=== PATIENT | male | born 1960 | race Caucasian/White ===

== ENCOUNTER 2018-10-27 14:38 | Inpatient (IN) | payer OTHER, MEDICARE ==
[~2018-10-27] VITALS: Ht 175.3 cm; Wt 62.7 kg
[2018-10-27] MEDS ORDERED: SODIUM CHLORIDE 0.9% 1000ML 1,000 ML IV STA (14:55)
[2018-10-27] MEDS ORDERED: SUCCINYLCHOLINE CHLORIDE 20 MG/ML 10ML VIAL ONE (15:14)
[2018-10-27] MEDS ORDERED: ETOMIDATE 2 MG/ML 10 ML INJ IV ONE (15:14)
[2018-10-27 15:30] LABS: BASOPHILS # (AUTO) 0.1 (0.0-0.1); BASOPHILS % 0.2 % (0.0-1.0); EOSINOPHILS % 0.1 % (0.0-6.0); HEMATOCRIT 24.5 % (38.2-49.6); HEMOGLOBIN 7.3 g/dL (14.0-18.0); INR 1.16; LYMPHOCYTES # (AUTO) 0.3 (1.0-3.2); LYMPHOCYTES % 0.8 % (18.0-39.1); MEAN CORPUSCULAR HEMOGLOBIN 27.4 pg (28-32); MEAN CORPUSCULAR HGB CONC 29.8 g/dL (31-35); MEAN CORPUSCULAR VOLUME 92.1 fL (81-99); MONOCYTES # (AUTO) 1.5 (0.2-0.8); MONOCYTES % 4.5 % (4.4-11.3); NEUTROPHILS # (AUTO) 31.6 (2.1-6.9); PROTHROMBIN TIME 15.4 seconds (11.9-14.5); RED BLOOD COUNT 2.66 x10e6/uL (4.3-5.7); RED CELL DISTRIBUTION WIDTH 15.1 % (11.7-14.4)
[2018-10-27 15:31] LABS: PARTIAL THROMBOPLASTIN TIME 41.9 seconds (23.8-35.5)
[2018-10-27 15:38] LABS: ALANINE AMINOTRANSFERASE 11 IU/L (0-55); ALBUMIN 1.8 g/dL (3.5-5.0); ALBUMIN/GLOBULIN RATIO 0.4 (0.8-2.0); ALKALINE PHOSPHATASE 153 IU/L (40-150); ANION GAP 14.2 mmol/L (8-16); BLOOD UREA NITROGEN 13 mg/dL (7-26); BUN/CREATININE RATIO 16 (6-25); CALCIUM 8.9 mg/dL (8.4-10.2); CARBON DIOXIDE 31 mmol/L (22-29); CHLORIDE 96 mmol/L (98-107); CREATINE KINASE 539 IU/L (30-200); CREATININE, SERUM 0.83 mg/dL (0.72-1.25); EST GLOMERULAR FILTRATION RATE > 60 ML/MIN (60-); GLUCOSE 171 mg/dL (74-118); MAGNESIUM 1.7 MG/DL (1.3-2.1); POTASSIUM 4.2 mmol/L (3.5-5.1); SODIUM 137 mmol/L (136-145)
[2018-10-27 15:40] LABS: PLATELET COUNT 500 x10e3/uL (140-360)
[2018-10-27] MEDS ORDERED: VANCOMYCIN 1GM/NS 250 ML 250 ML IV ONE (15:45)
--- NOTE | 2018-10-27 15:46 | Diagnostic Imaging Report ---
History: Altered mental status Comparison studies: None Technique: Axial images were obtained from the skull base to the vertex. Coronal and sagittal images reconstructed from the axial data. Dose modulation, iterative reconstruction, and/or weight based adjustment of the mA/kV was utilized to reduce the radiation dose to as low as reasonably achievable. Intravenous contrast: None Findings: Scalp/skull: No abnormalities. Extra-axial spaces: No masses. No fluid collections. Brain sulci: Mildly prominent. Ventricles: Mild compensatory dilatation. No hydrocephalus. Parenchyma: Describe hypodensities in the supratentorial white matter are small vessel ischemic changes. No masses, hemorrhage, acute or chronic cortical vascular insults. Sellar/suprasellar region: No abnormalities. Craniocervical junction: Patent foramen magnum. No Chiari one malformation. Incidental findings: Subtle atherosclerotic calcifications in the carotid siphons . Impression: No intracranial abnormalities. Signed by: Dr. Jorge Evans M.D. on 10/27/2018 3:43 PM
--- NOTE | 2018-10-27 16:00 | Diagnostic Imaging Report ---
EXAMINATION: CHEST SINGLE (PORTABLE) INDICATION: Lung cancer, shortness of breath, altered mental status. COMPARISON: None FINDINGS: TUBES and LINES: Left-sided pacemaker with leads overlying the right atrium and right ventricle. LUNGS: Decreased left lung volume. There is a left perihilar opacity. There are multifocal patchy opacities involving the bilateral upper and left lower lungs. Mild patchy right basilar opacity. PLEURA: There is a moderate left pleural effusion. No evidence of pneumothorax. HEART AND MEDIASTINUM: The left cardiac silhouette is obscured by the hilar opacity. There is thickening of the left paratracheal stripe. BONES AND SOFT TISSUES: No acute osseous abnormality. UPPER ABDOMEN: No free air under the diaphragm. IMPRESSION: Left perihilar opacity, which may represent known malignancy. Multifocal patchy opacities, which may reflect superimposed pneumonia. If no prior comparison studies are available, CT is suggested for further evaluation. Moderate left pleural effusion. Signed by: Dr. Trupti Maldonado MD on 10/27/2018 3:57 PM
[2018-10-27 16:12] LABS: ACETAMINOPHEN 4 ug/mL (10-30)
[2018-10-27 16:20] LABS: SALICYLATE < 5.0 mg/dL (0-30)
[2018-10-27] MEDS: CEFEPIME 2 GM/NS 0.9% 100 ML 100 ML IV SCH (16:24)
[2018-10-27] MEDS ORDERED: SODIUM CHLORIDE 0.9% 250ML 250 ML IV ONE (16:45)
[2018-10-27] MEDS ORDERED: SODIUM CHLORIDE 0.9% 1000ML 1,000 ML IV ONE (17:15)
[2018-10-27 17:16] LABS: BILIRUBIN,URINE NEGATIVE (NEGATIVE); COLOR,URINE YELLOW (YELLOW); KETONES,URINE NEGATIVE (NEGATIVE); LEUKOCYTE ESTERASE ,URINE NEGATIVE (NEGATIVE); NITRITE,URINE NEGATIVE (NEGATIVE); PROTEIN,URINE DIPSTICK 1+ (NEGATIVE); URINE UROBILINOGEN 0.2 mg/dL (0.2 - 1)
[2018-10-27 17:18] LABS: CLARITY,URINE HAZY (CLEAR)
[2018-10-27 17:23] LABS: AMPHETAMINES SCREEN,URINE NEGATIVE (NEGATIVE); BENZODIAZEPINES SCREEN,URINE POSITIVE (NEGATIVE); PHENCYCLIDINE SCREEN,URINE NEGATIVE (NEGATIVE)
[2018-10-27 17:31] LABS: AMORPHOUS SEDIMENT,URINE MODERATE (FEW); BACTERIA,URINE FEW /HPF; EPITHELIAL CELLS,URINE RARE /LPF
--- OUTSIDE RECORDS SUMMARY | 2018-10-27 17:31 | XMS REPORT ---
Author Author [facility] Address Unknown Phone Unavailable Care Team Providers Care Field Sales Specialist Name Role Phone Aubree BRYAN Unavailable Unavailable Problems This patient has no known problems. Allergies, Adverse Reactions, Alerts This patient has no known allergies or adverse reactions. Medications This patient has no known medications. Results Test Description Test Time Test Comments Text Results Atomic Results Result Comments CHEST SINGLE (PORTABLE) 2018-10-27 15:47:00 [facility] [address] [place] [address] Patient Name: CATALINA BERGMAN MR #: [id number] : 1960 Age/Sex: 58/M Req #: [id number] Adm Physician: Ordered by: ENRIKE BRYAN MD Report #: [id number] Location: ER Room/Bed: Procedure: [id number] DX/CHEST SINGLE (PORTABLE) Exam Date: 10/27/18 Exam Time: 1510 REPORT STATUS: Signed EXAMINATION: CHEST SINGLE (PORTABLE) I NDICATION: Lung cancer, shortness of breath, altered mental status. COMPARISON: None FINDINGS: TUBES and LINES: Left-sided pacemaker with leads overlying the right atrium and right ventricle. LUNGS: Decreased left lung volume. There is a left perihilar opacity. There are multifocal patchy opacities involving the bilateral upper and left lower lungs. Mild patchy right basilar opacity. PLEURA: There is a moderate left pleural effusion. No evidence of pneumothorax. HEART AND MEDIASTINUM: The left cardiac silhouette is obscured by the hilar opacity. There is thickening of the left paratracheal stripe. BONES AND SOFT TISSUES: No acute osseous abnormality. UPPER ABDOMEN: No free air under the diaphragm. IMPRESSION: Left perihilar opacity, which may represent known malignancy. Multifocal patchy opacities, which may reflect superimposed pneumonia. If no prior comparison studies are available, CT is suggested for further evaluation. Moderate left pleural effusion. Signed by: Dr. Uriel Duffy MD on 10/27/2018 3:57 PM Dictated By: URIEL DUFFY MD 364 Transcribed By: KENDRICK on 10/27/181556 COPY TO: ENRIKE BRYAN MD CT BRAIN WO 2018-10-27 15:41:00 [place] [address] Patient Name: CATALINA BERGMAN MR #: [id number] : 1960 Age/Sex: 58/M Req #: [id number] Adm Physician: Ordered by: ENRIKE BRYAN MD Report #: [id number] Location: ER Room/Bed: Procedure: [id number] CT/CT BRAIN WO Exam Date: Exam Time: REPORT STATUS: Signed History: Altered mental status Comparison studies: None Technique: Axial images were obtained from the skull base to the vertex. Coronal and sagittal images reconstructed from the axial data. Dose modulation, iterative reconstruction, and/or weight based adjustment of the mA/kV was utilized to reduce the radiation dose to as low as reasonably achievable. Intravenous contrast: None Findings: Scalp/skull: No abnormalities. Extra-axial spaces: No masses. No fluid collections. Brain sulci: Mildly prominent. Ventricles: Mild compensatory dilatation. No hydrocephalus. Parenchyma: Describe hypodensities in the supratentorial white matter are small vessel ischemic changes. No masses, hemorrhage, acute or chronic cortical vascular insults. Sellar/suprasellar region: No abnormalities. Craniocervical junction: Patent foramen magnum. No Chiari one malformation. Incidental findings: Subtle atherosclerotic calcifications in the carotid siphons . Impression: No intracranial abnormalities. Signed by: Dr. Jorge Evans M.D. on 10/27/2018 3:43 PM Dictated By: JORGE EVANS MD, MD 1543 Transcribed By: KENDRICK on 10/27/18 1543 COPY TO: ENRIKE BRYAN MD
[2018-10-27 17:35] LABS: WBC,URINE (MAN) 21-50 /HPF (0-5)
--- NOTE | 2018-10-27 17:50 | NUR ---
RECEIVED PT FROM ER. [id number]. PT RESTING ON BED WITH NO SIGNS OF DISTRESS. PT FAMILY AT BEDSIDE. BED IS AT THE LOWEST POSITION AND LOCKED. CALL LIGHT WITH IN EASY REACH. INSTRUCTED PT TO CALL FOR NEEDS. PT DENIES NEEDS AT THIS TIME.
[2018-10-27 18:17] VITALS: BP 118/81
[2018-10-27 18:19] VITALS: BP 118/81
[2018-10-27 18:31] LABS: BAND NEUTROPHILS % (MANUAL) 4 %; MONOCYTES % (MANUAL) 6 % (3.4-9.0); NEUTROPHILS % (MANUAL) 90 % (40-74)
[2018-10-27 18:32] LABS: PLATELET ESTIMATE MODERATELY INCREASED; PLATELET MORPHOLOGY COMMENT NORMAL
[2018-10-27 18:33] LABS: HYPOCHROMASIA SLIGHT; RBC MORPHOLOGY COMMENT NORMAL
[2018-10-27] MEDS: ALBUTEROL SULF 0.083% NEB SOLN 3 ML NEB NEB SCH ×2 (19:00→23:00)
[2018-10-27] MEDS: IPRATROPIUM BROMIDE 0.02% 2.5 ML NEB NEB SCH (19:00)
--- NOTE | 2018-10-27 19:00 | NUR ---
BEDSIDE SHIFT REPORT GIVEN TO THE BOOKSTORE CLERK RN. PT DENIED FURTHER NEEDS.
[2018-10-27] MEDS: AZITHROMYCIN 500MG/NS 250 ML 250 ML IV SCH (19:19)
--- NOTE | 2018-10-27 19:40 | NUR ---
Received patient in bed aaox3 with at bedside. No resp distress. Denies pain at this time. call light within reach and instructed to call for assistance.
[2018-10-27] MEDS ORDERED: ECONAZOLE NITRAT5 GM TOP (20:17)
[2018-10-27] MEDS ORDERED: GABAPENTIN100 MG PO (20:17)
[2018-10-27] MEDS ORDERED: MULTI-VITAMIN1 EACH PO (20:17)
[2018-10-27] MEDS ORDERED: BUPROPION XL150 MG (20:17)
[2018-10-27] MEDS ORDERED: IBUPROFEN400 MG PO (20:17)
[2018-10-27] MEDS ORDERED: VIBRAMYCIN100 MG PO (20:17)
[2018-10-27] MEDS ORDERED: LEVOTHYROXINE50 MCG PO (20:17)
[2018-10-27] MEDS ORDERED: QUETIAPINE FUM100 MG PO (20:17)
[2018-10-27] MEDS ORDERED: METHADONE HCL10 MG PO (20:17)
[2018-10-27] MEDS ORDERED: BISACODYL5 MG PO (20:17)
[2018-10-27] MEDS ORDERED: CHANTIX1 MG PO (20:17)
[2018-10-27] MEDS ORDERED: OLANZAPINE5 MG PO (20:17)
[2018-10-27 20:45] VITALS: BP 111/53
[2018-10-27] MEDS ORDERED: SODIUM CHLORIDE 0.9% 250ML 250 ML ONE (21:34)
--- NOTE | 2018-10-27 21:45 | NUR ---
Started blood transfusion. NEERAJ. Will continue to monitor.
[2018-10-27 21:56] LABS: CREATINE KINASE MB 8.7 ng/mL (0-5.0)
[2018-10-27 23:04] VITALS: BP 154/78
--- NOTE | 2018-10-27 23:30 | NUR ---
Tele monitor indicated patient in AFIB RVR. Patient became unresponsive, and pupil constricted. Called rapid response and team arrived.
--- NOTE | 2018-10-27 23:30 | NUR ---
Stopped blood transfusion
[2018-10-27] MEDS ORDERED: SODIUM CHLORIDE 0.9% 1000ML 2,000 ML ONE (23:56)
[2018-10-28] VITALS (23 sets, daily range): BP systolic 87–156; BP diastolic 45–88
[2018-10-28] MEDS ORDERED: NOREPINEPHRINE 8 MG/D5W 250 ML 250 ML ONE (00:08)
[2018-10-28] MEDS ORDERED: FENTANYL CITRATE/PF 100MCG/2 ML INJ ONE (00:16)
[2018-10-28] MEDS ORDERED: MIDAZOLAM HCL 2 MG/2 ML VIAL ONE ×3 (00:19→21:18)
[2018-10-28] MEDS ORDERED: SODIUM CHLORIDE 0.9% 1000ML 2,000 ML ONE (00:20)
[2018-10-28] MEDS ORDERED: CEFEPIME 1GM/NS 0.9% 50 ML 50 ML IV STA (00:24)
[2018-10-28] MEDS ORDERED: VANCOMYCIN 1GM/NS 250 ML 250 ML IV STA (00:24)
[2018-10-28 00:46] LABS: BASOPHILS % 0.1 % (0.0-1.0); EOSINOPHILS # (AUTO) 0.1 (0.0-0.4); EOSINOPHILS % 0.2 % (0.0-6.0); HEMATOCRIT 21.1 % (38.2-49.6); LYMPHOCYTES # (AUTO) 0.2 (1.0-3.2); LYMPHOCYTES % 0.9 % (18.0-39.1); MEAN CORPUSCULAR HEMOGLOBIN 27.5 pg (28-32); MEAN CORPUSCULAR HGB CONC 29.9 g/dL (31-35); MEAN CORPUSCULAR VOLUME 92.1 fL (81-99); MONOCYTES # (AUTO) 1.5 (0.2-0.8); MONOCYTES % 5.6 % (4.4-11.3); NEUTROPHILS # (AUTO) 24.1 (2.1-6.9); NEUTROPHILS % 92.2 % (38.7-80.0); PLATELET COUNT 285 x10e3/uL (140-360); RED BLOOD COUNT 2.29 x10e6/uL (4.3-5.7); RED CELL DISTRIBUTION WIDTH 15.9 % (11.7-14.4)
[2018-10-28 00:50] LABS: INR 1.32
[2018-10-28 00:55] LABS: HEMOGLOBIN 6.3 g/dL (14.0-18.0)
--- NOTE | 2018-10-28 01:20 | NUR ---
Spoke with Dr. Hwang and he is aware of patient transfer to ICU
[2018-10-28 01:33] LABS: ALANINE AMINOTRANSFERASE 13 IU/L (0-55); ALBUMIN 1.3 g/dL (3.5-5.0); ALBUMIN/GLOBULIN RATIO 0.3 (0.8-2.0); ALKALINE PHOSPHATASE 174 IU/L (40-150); ANION GAP 10.9 mmol/L (8-16); BLOOD UREA NITROGEN 11 mg/dL (7-26); BUN/CREATININE RATIO 17 (6-25); CARBON DIOXIDE 25 mmol/L (22-29); CHLORIDE 109 mmol/L (98-107); CREATINE KINASE 277 IU/L (30-200); CREATININE, SERUM 0.64 mg/dL (0.72-1.25); EST GLOMERULAR FILTRATION RATE > 60 ML/MIN (60-); GLUCOSE 98 mg/dL (74-118); POTASSIUM 3.9 mmol/L (3.5-5.1); SODIUM 141 mmol/L (136-145)
[2018-10-28 01:45] LABS: CALCIUM 7.3 mg/dL (8.4-10.2)
--- NOTE | 2018-10-28 01:45 | Diagnostic Imaging Report ---
Examination: Single AP view of the chest. COMPARISON: 10/27/2018 INDICATION: Anemia DISCUSSION: Lines/tubes: Endotracheal tube at the thoracic inlet.] Catheter with tip over the SVC. Lungs: Multifocal opacities within the right hemithorax. The left lung is collapsed effusion. Pleura: Left effusion. Heart and mediastinum: The heart is obscured. Bones and soft tissues: No acute bony abnormalities. Degenerative changes in the thoracic spine. IMPRESSION: Opacified left hemithorax compared to collapse and effusion from malignancy. Increased consolidation in the right chest. Signed by: Dr. Jaiden Renee M.D. on 10/28/2018 1:41 AM
[2018-10-28] MEDS ORDERED: SODIUM CHLORIDE 0.9% 50ML 50 ML ONE ×2 (01:46→06:22)
[2018-10-28] MEDS ORDERED: SODIUM CHLORIDE 0.9% 250ML 250 ML ONE ×2 (01:47→02:53)
--- NOTE | 2018-10-28 01:53 | Diagnostic Imaging Report ---
EXAMINATION: CT scan of the chest with contrast. TECHNIQUE: Helical CT images of the chest were performed from the lung apices to the level of the adrenal glands after the intravenous administration of 100 cc of Omnipaque 300. Coronal and sagittal reformatted images were obtained.Dose modulation, iterative reconstruction, and/or weight based adjustment of the mA/kV was utilized to reduce the radiation dose to as low as reasonably achievable. COMPARISON: None. CLINICAL HISTORY:Anemia, lung metastasis DISCUSSION: LINES/TUBES: Endotracheal tube at the thoracic inlet. Right IJ catheter in SVC. LUNGS AND AIRWAYS: Left hilar mass, ill-defined causing narrowing of the left mainstem bronchus and branches causing postobstructive left lung collapse. Additional narrowing of the left lung pulmonary vasculature. Groundglass and multifocal nodular consolidations within the right lung. Confluent consolidation middle lobe. No proximal airway obstruction. Underlying emphysematous change. No pulmonary embolism PLEURA: Moderate left and small right pleural effusion. HEART AND MEDIASTINUM: The thyroid gland is normal. The heart and pericardium are within normal limits. LYMPH NODES: There is no mediastinal, hilar or axillary lymphadenopathy. ABDOMEN: Limited contrast-enhanced views of the upper abdomen show no abnormality within the visualized liver, spleen, pancreas, or kidneys. The adrenal glands are normal. BONES AND SOFT TISSUES: No acute bony abnormalities. IMPRESSION: Ill-defined left hilar mass causing postobstructive left lung collapse. Left greater than right pleural effusion. Multifocal groundglass and nodular opacities in the right lung may reflect a combination of metastasis and treatment toxicity. Confluent consolidation in the right middle lobe may reflect pneumonia. Signed by: Dr. Jaiden Renee M.D. on 10/28/2018 1:50 AM
--- NOTE | 2018-10-28 02:04 | NUR ---
VERSED 25MG DISPENSED FROM [employer] AT THIS TIME AND GIVEN TO NIVIA ROGERS FOR VERSED DRIP PREPARATION.
[2018-10-28] MEDS ORDERED: MIDAZOLAM HCL 5 MG/ML VIAL ONE (02:06)
[2018-10-28 02:14] LABS: BILIRUBIN,URINE NEGATIVE (NEGATIVE); CLARITY,URINE SL CLOUDY (CLEAR); COLOR,URINE YELLOW (YELLOW); KETONES,URINE NEGATIVE (NEGATIVE); LEUKOCYTE ESTERASE ,URINE NEGATIVE (NEGATIVE); NITRITE,URINE NEGATIVE (NEGATIVE); PROTEIN,URINE DIPSTICK 1+ (NEGATIVE); URINE UROBILINOGEN 0.2 mg/dL (0.2 - 1)
[2018-10-28 02:24] LABS: ABG HCO3 29 mmol/L (23-28); ABG PCO2 58 mmHg (41-51); ABG PH 7.31 (7.31-7.41); ABG PO2 412 mmHg (80-105)
[2018-10-28 02:28] LABS: BACTERIA,URINE MODERATE /HPF; EPITHELIAL CELLS,URINE FEW /LPF; TRANSITIONAL EPI CELLS,URINE FEW
[2018-10-28 02:29] LABS: MUCUS,URINE FEW (RARE)
[2018-10-28] MEDS: ALBUTEROL SULF 0.083% NEB SOLN 3 ML NEB NEB SCH ×6 (02:30→23:02)
[2018-10-28] MEDS: MIDAZOLAM HCL 25 MG in SODIUM CHLORIDE 0.9% 50ML 45 ML IV PRN ×3 (02:30→21:24)
[2018-10-28] MEDS: IPRATROPIUM BROMIDE 0.02% 2.5 ML NEB NEB SCH ×7 (02:30→23:02)
[2018-10-28] MEDS: FENTANYL CITRATE INJ 2,000 MCG in SODIUM CHLORIDE 0.9% 250ML 210 ML IV PRN (03:00)
[2018-10-28] MEDS: NOREPINEPHRINE INJ 4MG/4ML 8 MG in DEXTROSE 5% 250ML 250 ML IV PRN ×3 (03:00→05:00)
--- NOTE | 2018-10-28 04:13 | NUR ---
Dr. Hwang updated on transfer to ICU and patient condition. Orders received. Paged again at [phone] to ana VALDEZ and read results of imaging and ABGs.
--- NOTE | 2018-10-28 04:15 | NUR ---
ER , Dr. Sanchez, aware of CXR results. Consent signed for thoracentesis per MD request. at bedside.
[2018-10-28] MEDS: CEFEPIME 2 GM/NS 0.9% 100 ML 100 ML IV SCH (05:00)
[2018-10-28 05:33] LABS: BASOPHILS % 0.1 % (0.0-1.0); EOSINOPHILS # (AUTO) 0.1 (0.0-0.4); EOSINOPHILS % 0.2 % (0.0-6.0); HEMATOCRIT 22.5 % (38.2-49.6); LYMPHOCYTES # (AUTO) 0.5 (1.0-3.2); LYMPHOCYTES % 1.7 % (18.0-39.1); MEAN CORPUSCULAR HEMOGLOBIN 27.1 pg (28-32); MEAN CORPUSCULAR HGB CONC 30.2 g/dL (31-35); MEAN CORPUSCULAR VOLUME 89.6 fL (81-99); MONOCYTES # (AUTO) 1.5 (0.2-0.8); MONOCYTES % 5.1 % (4.4-11.3); NEUTROPHILS % 91.6 % (38.7-80.0); RED BLOOD COUNT 2.51 x10e6/uL (4.3-5.7)
[2018-10-28 05:48] LABS: HEMOGLOBIN 6.8 g/dL (14.0-18.0)
[2018-10-28 05:49] LABS: PLATELET COUNT 322 x10e3/uL (140-360)
[2018-10-28 05:52] LABS: ALANINE AMINOTRANSFERASE 14 IU/L (0-55); ANION GAP 7.7 mmol/L (8-16); BLOOD UREA NITROGEN 10 mg/dL (7-26); BUN/CREATININE RATIO 17 (6-25); CALCIUM 7.9 mg/dL (8.4-10.2); CARBON DIOXIDE 28 mmol/L (22-29); CHLORIDE 108 mmol/L (98-107); CREATININE, SERUM 0.59 mg/dL (0.72-1.25); EST GLOMERULAR FILTRATION RATE > 60 ML/MIN (60-); GLUCOSE 76 mg/dL (74-118); POTASSIUM 3.7 mmol/L (3.5-5.1); SODIUM 140 mmol/L (136-145)
[2018-10-28 05:53] LABS: ALBUMIN 1.5 g/dL (3.5-5.0); ALBUMIN/GLOBULIN RATIO 0.3 (0.8-2.0); ALKALINE PHOSPHATASE 200 IU/L (40-150)
[2018-10-28] MEDS ORDERED: IOPAMIDOL 370 MG/ML 200 ML INFUS..BTL INJ ONE (06:22)
[2018-10-28 06:23] LABS: CREATINE KINASE MB 4.8 ng/mL (0-5.0)
--- NOTE | 2018-10-28 07:37 | NUR ---
0130- Dr. Hwang updated on available labs, some pending, and patient condition. MD notified of critical Hgb, no new orders received. 0600- Dr. Sanchez at bedside. MD discussed goals of POC and prognosis with , Ankita, at bedside. Patient's family changed code status to DNR, witnessed by DR. Sanchez and Nieves GONZÁLES. Thoracentesis done at bedside by Dr. Sanchez, -600 mL fluid removed. 614- Dr. wHang returned call. Updated MD on CXR/CT results, and new code status. Dr. Sanchez updated Dr. Hwang regarding patient, condition, diagnositics. Addendum: 10/28/18 at 0747 by Nieves Lang RN Dr. Sanchez discussed options including terminal extubation with family.
--- NOTE | 2018-10-28 07:42 | Diagnostic Imaging Report ---
Examination: Single AP view of the chest. COMPARISON: Chest radiograph 10/28/2018 at 12:24 AM, CT chest 10/28/2018. INDICATION: Status post thoracentesis. DISCUSSION: Lines/tubes: Endotracheal tube at the thoracic inlet.] Right IJ central venous catheter terminates near the brachiocephalic confluence. Left-sided pacemaker in unchanged position. Cardiac loop recorder. Lungs: Interval partial reaeration in the left upper lung. Persistent opacification within the left mid and lower lung zones. Persistent multifocal opacities in the right lung. Pleura: Interval decrease in size of a left-sided pleural effusion, now moderate. No evidence of pneumothorax. Heart and mediastinum: Left margin of the heart is obscured. Bones and soft tissues: No acute osseous abnormality. IMPRESSION: Interval decrease in size of moderate left pleural effusion with interval partial reaeration in the left upper lung. Left perihilar mass, better characterized on prior chest CT from 10/28/2018. Multifocal opacities, consistent with superimposed pneumonia. Signed by: Dr. Trupti Maldonado MD on 10/28/2018 7:39 AM
--- NOTE | 2018-10-28 08:01 | NUR ---
0000- Levophed gtt started during rapid response at 10 mcg/min. 0100- Bebeto [employer] adjusted levophed gtt to 9 mcg/min while in CT Scan.
[2018-10-28 08:09] LABS: LYMPHOCYTES % (MANUAL) 2 % (19-48); MONOCYTES % (MANUAL) 5 % (3.4-9.0); NEUTROPHILS % (MANUAL) 92 % (40-74); PLATELET MORPHOLOGY COMMENT NORMAL
[2018-10-28 08:10] LABS: PLATELET ESTIMATE ADEQUATE; RBC MORPHOLOGY COMMENT NORMAL
--- NOTE | 2018-10-28 08:16 | NUR ---
Levo gtt weaned off at 0500 BP 110/72 HR 68
[2018-10-28] MEDS ORDERED: VANCOMYCIN 1GM/NS 250 ML 250 ML IV SCH (09:00)
[2018-10-28 09:12] LABS: % IRON SATURATION 19 % (15-50); IRON 21 ug/dL (65-175); TOTAL IRON BINDING CAPACITY 111 ug/dL (261-478); TRANSFERRIN 79 mg/dL (174-364)
[2018-10-28] MEDS: LEVOTHYROXINE SODIUM 50 MCG TAB PO SCH (09:30)
[2018-10-28] MEDS: PANTOPRAZOLE 40 MG 10ML VIAL IV SCH (09:51)
[2018-10-28] MEDS: HEPARIN SOD (PORCINE) 5,000 UNIT/ML VIAL SC SCH ×2 (09:54→20:40)
[2018-10-28] MEDS: AZITHROMYCIN 500MG/NS 250 ML 250 ML IV SCH (10:34)
[2018-10-28 12:05] LABS: BODY FLUID APPEARANCE CLOUDY; BODY FLUID COLOR RED; BODY FLUID TYPE PLEURAL
[2018-10-28 12:08] LABS: RBC,BODY FLUID 11261 cells/uL; WBC,BODY FLUID 2475 cells/uL
[2018-10-28 12:17] LABS: LYMPHOCYTES,BODY FLUID 55 %; MONO/MACROPHG,BODY FLUID 4 %; NEUTROPHILS,BODY FLUID 41 %
--- NOTE | 2018-10-28 12:45 | NUR ---
ASSESSMENT: Spiritual distress Pt's accepting concerning pt's illness. Pt's states her has had cancer +4 years and has "suffered" from illness and treatment. Pt's , granddaughter and daughter at bedside. Pt's states she "isn't worried about his soul" after his . Pt's states when he dies she will miss him but "doesn't want him to suffer anymore." Pt's family expressed emotions thru words and tears. Intervention: Provided empathic listening. Facilitated conversation about pt's spirituality. Provided prayer. Provided information concerning availability of latin dance instructor. Outcome: Pt's family expressed appreciation for support. Will follow as able. BLADIMIR PIÑA [employer] Spiritual Care Department O: [phone] Pager: [phone] ([phone] number calling from)
[2018-10-28] MEDS: DEXTROSE 5%/0.9% SOD CHL 1,000 ML IV SCH (13:21)
[2018-10-28] MEDS: METHYLPREDNISOLONE SOD SUCC 40 MG/ML VIAL 1ML IV SCH ×2 (13:21→21:32)
--- NOTE | 2018-10-28 14:31 | Diagnostic Imaging Report ---
Exam: KUB - 2 views Clinical History: Nasogastric tube placement. Comparison: None. Findings: Nasogastric tube terminates in the expected location of the stomach, the side port is below the GE junction. Please refer to the chest radiograph from 10/28/2018 for details of intrathoracic findings including opacification of the left hemithorax. There is a cardiac loop recorder, partially seen. No significantly dilated bowel loops, although evaluation is limited secondary to soft tissue attenuation. Impression: Nasogastric tube terminates in the stomach. Signed by: Dr. Trupti Maldonado MD on 10/28/2018 2:27 PM
--- NOTE | 2018-10-28 15:13 | History and Physical ---
Patient of Dr. Hwang, __yamilka , Dr. Jeanna Blum. HISTORY OF PRESENT ILLNESS: Unfortunate 58-year-old gentleman diagnosed with carcinoma of the tongue approximately four years ago, treated with radiation, chemotherapy, and subsequently immunotherapies. He was initially followed by Dr. Blum and then subsequently Dr. Felipe . Apparently, he developed lung metastases.or a second primary tumor He has had a pacemaker in the past after an episode of syncope presumably for sick sinus syndrome. last night he became hypoxic during a transfusion. He was intubated and placed on ventilator support. FAMILY HISTORY: Positive for cancer. SOCIAL HISTORY: The patient does have a history of smoking. He worked until approximately two months ago. ALLERGIES: NO KNOWN ALLERGIES. Somewhat cachectic white male, intubated, apparently became short of breath after a transfusion last night. He is quite anemic with a leukemoid reaction. At admission felt to have pneumonia. He is surrounded by family. According to their report, he is short of breath. He has altered mental status. He had a fractured neck after a fall, which was related to sick sinus syndrome. MEDICATIONS: Include bupropion, doxycycline, Neurontin, Levoxyl, methadone, multivitamin, olanzapine, Seroquel, and Chantix . PLAN: Plan is to honor the patient's wishes. They may request withdrawal. At this point, continue empiric antibiotics, ventilator support. We will not escalate the care further . If not, we will request Hematology opinion before considering further transfusion. Hemoglobin is 7.3 on admission 6.8, white count 34,000. Serum albumin has also evidence of chronic CO2 retention. MD TALYA Victor/MODL /[id number] JONAS
[2018-10-28] MEDS ORDERED: ACETAMINOPHEN 1000 MG/100 ML IV PRN (15:15)
[2018-10-28] MEDS ORDERED: VANCOMYCIN 750MG/NS 150ML IVPB 150 ML IV SCH (15:30)
[2018-10-28] MEDS ORDERED: MEROPENEM 500MG 500 MG in SODIUM CHLORIDE 0.9% 50ML 50 ML IV SCH (18:00)
[2018-10-28] MEDS: MEROPENEM 500MG/ NS 50ML BAG IV SCH ×2 (18:03→23:45)
--- NOTE | 2018-10-28 18:49 | History and Physical ---
ADDENDUM: The patient did seem to have a transfusion reaction, shortness of breath, and hypoxia. The patient was discussed with his primary care oncologist, Dr. Angelique Felipe. She agreed that it would be appropriate to continue medical management and stabilize the patient and treat his pneumonia. MD TALYA Victor/MODL /[id number]
--- NOTE | 2018-10-28 18:55 | Consultation ---
DATE OF CONSULTATION: 10/28/2018 REASON FOR CONSULTATION: Sepsis and pneumonia. HISTORY OF PRESENT ILLNESS: This patient, who is a 58-year-old white male, who has history of cancer. He has been having problem with cancer for several years. 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 The patient comes in with altered mental status. Apparently, he has been sick for the last 3 days. He came to the emergency room. In the emergency room, it was noted that he have leukocytosis. He is currently intubated. The family at the bedside. The patient is sedated, does not really provide any meaningful information. Apparently, he has been battling cancer for several years on and off. He was on chemo, he was on radiation, and most recently he is on immunotherapy. The patient was admitted, started on antibiotic. His blood culture is still pending. His white count on came with 33.98, today 28.4. His hemoglobin 7.3, came down to 6.8. His platelets are 500. Sodium 140, potassium 3.7. His creatinine is 0.59. Liver enzymes, his alkaline phosphatase is 200. The patient is currently on Solu-Medrol, azithromycin, vancomycin daily, cefepime. He had a chest x-ray and chest CT. The chest x-ray showed left perihilar opacity which now represents malignancy, multifocal patchy opacities may reflect pneumonia. A CAT scan of the chest and brain was done, they were both reviewed. There was no intracranial abnormality. CAT scan of the chest showed left hilar mass causing postobstructive left lung collapse, left greater than right pleural effusion, multifocal ground-glass opacities. PAST MEDICAL HISTORY: Cancer on and off for several years. PAST SURGICAL HISTORY: IV access for getting his chemo. ALLERGIES: NKA. SOCIAL HISTORY: Currently, there is no smoking, drug abuse, or alcohol abuse. FAMILY HISTORY: Otherwise noncontributory. REVIEW OF SYSTEMS: The patient's family telling me that he was fine until about 4 to 5 days ago lethargic and sleepy and brought here, but now he is running fever. His review of systems could not be obtained. PHYSICAL EXAMINATION: GENERAL: He is currently confused. VITAL SIGNS: Stable. The patient is intubated, minimum sputum. HEENT: Normocephalic. NECK: Supple. CHEST: Few crackles. COR: S1, S2. No S3, S4. ABDOMEN: Soft. Bowel sounds present. No tenderness. EXTREMITIES: No edema. SKIN: There is no rash. JOINT: There is no erythema. The patient is very thin. IMPRESSION: Sepsis, present on admission, healthcare associated pneumonia in a patient with cancer, perhaps postobstructive malignancy also with . We will put him on meropenem 500 IV q.6 hours and we will put him on vancomycin 750 q.12 hours. I will recheck CBC, recheck Chem panel. Await cultures. MD TRAV Montanez/ELINA /[id number]
[2018-10-28] MEDS: VANCOMYCIN 750MG/NS 150ML IVPB 150 ML IV SCH (20:39)
[2018-10-29] VITALS (24 sets, daily range): BP systolic 102–149; BP diastolic 55–102
[2018-10-29] MEDS: FENTANYL CITRATE INJ 2,000 MCG in SODIUM CHLORIDE 0.9% 250ML 210 ML IV PRN (00:17)
[2018-10-29] MEDS: MIDAZOLAM HCL 25 MG in SODIUM CHLORIDE 0.9% 50ML 45 ML IV PRN ×3 (01:58→20:41)
[2018-10-29] MEDS: DEXTROSE 5%/0.9% SOD CHL 1,000 ML IV SCH ×2 (01:58→09:45)
[2018-10-29] MEDS: IPRATROPIUM BROMIDE 0.02% 2.5 ML NEB NEB SCH ×6 (02:55→23:07)
[2018-10-29] MEDS: ALBUTEROL SULF 0.083% NEB SOLN 3 ML NEB NEB SCH ×6 (02:55→23:07)
[2018-10-29 05:11] LABS: BASOPHILS % 0.1 % (0.0-1.0); HEMOGLOBIN 7.1 g/dL (14.0-18.0); LYMPHOCYTES # (AUTO) 0.3 (1.0-3.2); LYMPHOCYTES % 1.2 % (18.0-39.1); MEAN CORPUSCULAR HEMOGLOBIN 26.8 pg (28-32); MEAN CORPUSCULAR HGB CONC 30.9 g/dL (31-35); MEAN CORPUSCULAR VOLUME 86.8 fL (81-99); MONOCYTES # (AUTO) 0.5 (0.2-0.8); MONOCYTES % 1.8 % (4.4-11.3); NEUTROPHILS # (AUTO) 24.8 (2.1-6.9); NEUTROPHILS % 95.7 % (38.7-80.0); PLATELET COUNT 454 x10e3/uL (140-360); RED BLOOD COUNT 2.65 x10e6/uL (4.3-5.7); RED CELL DISTRIBUTION WIDTH 16.4 % (11.7-14.4)
[2018-10-29 05:15] LABS: INR 1.41; PROTHROMBIN TIME 17.8 seconds (11.9-14.5)
[2018-10-29 05:23] LABS: ANION GAP 11.1 mmol/L (8-16); BLOOD UREA NITROGEN 13 mg/dL (7-26); BUN/CREATININE RATIO 21 (6-25); CALCIUM 8.4 mg/dL (8.4-10.2); CARBON DIOXIDE 26 mmol/L (22-29); CHLORIDE 109 mmol/L (98-107); CREATININE, SERUM 0.61 mg/dL (0.72-1.25); EST GLOMERULAR FILTRATION RATE > 60 ML/MIN (60-); GLUCOSE 220 mg/dL (74-118); POTASSIUM 3.1 mmol/L (3.5-5.1); SODIUM 143 mmol/L (136-145)
[2018-10-29] MEDS: METHYLPREDNISOLONE SOD SUCC 40 MG/ML VIAL 1ML IV SCH ×3 (05:29→21:07)
[2018-10-29] MEDS: MEROPENEM 500MG/ NS 50ML BAG IV SCH ×2 (05:29→12:00)
[2018-10-29] MEDS: LEVOTHYROXINE SODIUM 50 MCG TAB PO SCH (05:29)
[2018-10-29 07:10] LABS: LYMPHOCYTES % (MANUAL) 1 % (19-48); MONOCYTES % (MANUAL) 3 % (3.4-9.0); NEUTROPHILS % (MANUAL) 96 % (40-74)
[2018-10-29 07:34] LABS: HYPOCHROMASIA MODERATE
[2018-10-29 07:38] LABS: PLATELET ESTIMATE SLIGHTLY INCREASED; PLATELET MORPHOLOGY COMMENT NORMAL; RBC MORPHOLOGY COMMENT NORMAL
--- NOTE | 2018-10-29 07:52 | Diagnostic Imaging Report ---
Examination: Portable AP view of the chest. COMPARISON: Chest radiograph 10/28/2018 at 7:17 AM INDICATION: Lung metastasis DISCUSSION: Lines/tubes: Endotracheal tube at the thoracic inlet. Right IJ central venous catheter terminates near the brachiocephalic confluence. Left-sided pacemaker in unchanged position. Cardiac loop recorder. An NG tube has been added with its tip below the diaphragm. Lungs: No change in the pulmonary edema. Multifocal pulmonary opacities in the right lung. Pleura: Left pleural effusion. Heart and mediastinum: Left margin of the heart is obscured. Bones and soft tissues: No acute osseous abnormality. IMPRESSION: 1. Multifocal right pulmonary consolidation. 2. Unchanged left pleural effusion. Signed by: Dr. Charlie Figueroa DO on 10/29/2018 7:49 AM
[2018-10-29] MEDS ORDERED: DEXTROSE 50% SYRINGE 50 ML IV PRN (08:15)
[2018-10-29] MEDS ORDERED: POTASSIUM CHLORIDE 20MEQ/15ML UDC NG PRN (08:30)
[2018-10-29] MEDS: AZITHROMYCIN 500MG/NS 250 ML 250 ML IV SCH (09:04)
[2018-10-29] MEDS: PANTOPRAZOLE 40 MG 10ML VIAL IV SCH (09:04)
[2018-10-29] MEDS: HEPARIN SOD (PORCINE) 5,000 UNIT/ML VIAL SC SCH ×2 (09:05→20:42)
[2018-10-29] MEDS: VANCOMYCIN 750MG/NS 150ML IVPB 150 ML IV SCH ×2 (09:14→20:41)
[2018-10-29] MEDS: INSULIN LISPRO 100 UNIT/1 ML 3ML VIAL SQ SCH ×3 (11:30→21:32)
--- NOTE | 2018-10-29 13:13 | NUR ---
DISCUSSED IN ROUNDS, PT HAD A REACTION TO A TRANSFUSION, IS DNR, FAILED WEANING, HAS A DX OF TERMINAL LUNG CANCER BUT WAS SEEKING TREATMENT.
--- NOTE | 2018-10-29 15:11 | NUR ---
Nutrition Intervention Note RD Recommendation(s) for Physician: -Rec increasing Vital HP to 50mL/hr (1200kcal, 105g protein, 1003ml water) to better meet his protein and calorie needs -Water flushes per MD -Check gastric tolerance, labs, weight daily Plan of Care: RD following, monitoring for tolerance and adequacy, TF rec Nutrition reason for involvement: MD Consult no reason stated RD Assessment 10/29 - 58yo M, who was admitted for hypoxia during a transfusion. Pt with hx of laryngeal cancer and lung cancer. Pt is undergoing immunotherapy. Currently intubated and ventilated. Visited pt in the room. IV vancomycin, fentanyl, and versed are noted. No family present on the bedside. Pt is getting Vital HP @40mL/hr through NGT. Per Terence, pt is tolerating TF well. Failed vent weaning; pt had a reaction to a transfusion. Will continue to monitor and follow. Principal Problems/Diagnoses: anemia, multifocal PNA, lung metastasis PMH: lung cancer, laryngeal cancer GI: Abdomen flat, soft, non-tender Skin: no pressure wound noted Labs: (10/29) K 3.1 L, creatininne 0.61 L Meds: vancomycin, heparin, protonix, azithromycin, solu-medrol, synthroid, fentanyl Ht: 69in Wt: 141lb BMI: 20.8kg/m2 IBW: 160lb +/- 10% Malnutrition Evaluation (10/29) Unable to evaluate due to current medical status. No family on bedside. Nutrition Prescription (Diet Order): Vital HP @40mL/hr Estimated Nutritional Needs: Calories: 1180 1475kcal (20-25kcal/kg/d) Weight used: CBW Protein: 77 118g (1.3-2g/kg/d) Weight used: CBW Diet Adequacy: meeting calorie needs, meeting protein needs Diet Education Needs Assessment: Diet education indicated, but patient not appropriate for education at this time. Nutrition Care Level: mod Nutrition Diagnosis: Inadequate oral intake related to current medical status as evidenced by pt requiring EN as main source of nutrition. Goal: Patient will meet 75-100% of estimated needs by follow up Progress: Goal met Interventions: Composition, Rate, Route, IVF, Prescription medications Monitoring/Evaluation: Total energy intake, Total protein intake, Formula/Solution, IVF, Prescription medication, Weight change Signed: Evelina Good, , RD, LD
--- NOTE | 2018-10-29 15:42 | NUR ---
Consultation for Sacral redness. Patient has a Stage I pressure ulcer over a prominent coccyx. Patient has CA of lungs and currently being treated for pneumonia. Heels are clear. Patient is on strict PUP. He has an alternating pressure relief surface set to the correct weight. Heel protectors in progress. H and H 25.92/7.1 Albumen 1.5. Will continue alternating pressure surface and heel protectors. Turn q 2 hrs. Begin venelex bid, cover with allevyn foam/change q 3 days, assess area daily.
[2018-10-29] MEDS: BALSAM PERU/CASTOR OIL 60 GM OINT...G. TP SCH (18:08)
[2018-10-29] MEDS: MEROPENEM 500MG/ NS 50ML 50 ML IV SCH (18:17)
[2018-10-30] VITALS (25 sets, daily range): BP systolic 116–158; BP diastolic 69–100
[2018-10-30] MEDS: MIDAZOLAM HCL 25 MG in SODIUM CHLORIDE 0.9% 50ML 45 ML IV PRN ×3 (01:30→13:53)
[2018-10-30] MEDS: IPRATROPIUM BROMIDE 0.02% 2.5 ML NEB NEB SCH ×6 (02:55→23:00)
[2018-10-30] MEDS: ALBUTEROL SULF 0.083% NEB SOLN 3 ML NEB NEB SCH ×6 (02:55→23:00)
[2018-10-30 05:07] LABS: BASOPHILS % 0.1 % (0.0-1.0); HEMATOCRIT 22.8 % (38.2-49.6); HEMOGLOBIN 7.1 g/dL (14.0-18.0); LYMPHOCYTES # (AUTO) 0.3 (1.0-3.2); LYMPHOCYTES % 1.3 % (18.0-39.1); MEAN CORPUSCULAR HEMOGLOBIN 27.2 pg (28-32); MEAN CORPUSCULAR HGB CONC 31.1 g/dL (31-35); MEAN CORPUSCULAR VOLUME 87.4 fL (81-99); MONOCYTES # (AUTO) 0.4 (0.2-0.8); MONOCYTES % 1.7 % (4.4-11.3); NEUTROPHILS # (AUTO) 21.5 (2.1-6.9); NEUTROPHILS % 95.9 % (38.7-80.0); PLATELET COUNT 337 x10e3/uL (140-360); RED BLOOD COUNT 2.61 x10e6/uL (4.3-5.7); RED CELL DISTRIBUTION WIDTH 16.6 % (11.7-14.4)
[2018-10-30] MEDS: LEVOTHYROXINE SODIUM 50 MCG TAB PO SCH (05:15)
[2018-10-30] MEDS: DEXTROSE 5%/0.9% SOD CHL 1,000 ML IV SCH ×2 (05:15→12:13)
[2018-10-30] MEDS: METHYLPREDNISOLONE SOD SUCC 40 MG/ML VIAL 1ML IV SCH ×3 (05:15→21:56)
[2018-10-30] MEDS: MEROPENEM 500MG/ NS 50ML 50 ML IV SCH ×5 (05:16→23:53)
[2018-10-30 05:28] LABS: ANION GAP 11.1 mmol/L (8-16); BLOOD UREA NITROGEN 23 mg/dL (7-26); BUN/CREATININE RATIO 38 (6-25); CALCIUM 8.4 mg/dL (8.4-10.2); CARBON DIOXIDE 26 mmol/L (22-29); CHLORIDE 111 mmol/L (98-107); EST GLOMERULAR FILTRATION RATE > 60 ML/MIN (60-); GLUCOSE 178 mg/dL (74-118); POTASSIUM 3.1 mmol/L (3.5-5.1); SODIUM 145 mmol/L (136-145)
[2018-10-30] MEDS: FENTANYL CITRATE INJ 2,000 MCG in SODIUM CHLORIDE 0.9% 250ML 210 ML IV PRN (06:25)
--- NOTE | 2018-10-30 07:02 | Diagnostic Imaging Report ---
EXAMINATION: CHEST SINGLE (PORTABLE) COMPARISON: Chest x-ray 10/29/2018, CT chest 10/28/2018 INDICATION: ^intubated ^[id number] ^0520 DISCUSSION: Frontal view of the chest obtained at 0620 hours. HEART AND MEDIASTINUM: Better visualization of the left heart border. Pulmonary arteries appear enlarged suggesting pulmonary artery hypertension. LINES: Endotracheal tube terminates at the clavicular heads. Enteric tube extends past the diaphragm. Right IJ catheter terminates in the SVC. Loop recorder device and pacer wires are stable. LUNGS: Patchy airspace opacities in the right lung are similar. There has been some improvement in left pulmonary consolidation. Significant amount consolidation remains in the base of the left hemithorax, however. PLEURA: No pneumothorax. BONES AND SOFT TISSUES: No focal osseous lesion. The soft tissues are normal. IMPRESSION: Mildly improved aeration of the left lung. Stable airspace opacities in the right lung. Support devices as described above. Signed by: Dr. Josie Gallo MD on 10/30/2018 6:59 AM
--- NOTE | 2018-10-30 07:44 | NUR ---
attempt to wean failed. pt off sedation for 15 min and is grossly agitated and in distress. resumed sedation
[2018-10-30] MEDS ORDERED: DEXMEDETOMIDINE HCL 200 MCG in SODIUM CHLORIDE 0.9% 50ML 48 ML IV PRN (08:30)
[2018-10-30] MEDS: VANCOMYCIN 750MG/NS 150ML IVPB 150 ML IV SCH ×2 (08:58→21:00)
[2018-10-30] MEDS: PANTOPRAZOLE 40 MG 10ML VIAL IV SCH (08:58)
[2018-10-30] MEDS: HEPARIN SOD (PORCINE) 5,000 UNIT/ML VIAL SC SCH ×2 (08:59→21:00)
[2018-10-30] MEDS: INSULIN LISPRO 100 UNIT/1 ML 3ML VIAL SQ SCH ×4 (09:00→21:00)
[2018-10-30] MEDS: AZITHROMYCIN 500MG/NS 250 ML 250 ML IV SCH (11:00)
[2018-10-30] MEDS: BALSAM PERU/CASTOR OIL 60 GM OINT...G. TP SCH ×2 (11:00→17:03)
[2018-10-30] MEDS ORDERED: DEXMEDETOMIDINE 200MCG/NS 50ML 50 ML IV ONE ×3 (11:24→19:58)
--- NOTE | 2018-10-30 14:03 | NUR ---
PT DISCUSSED IN BARRIER ROUNDS IS INTUBATED AND SEDATED, POSSIBLE EXTUBATION ON SUNDAY
--- NOTE | 2018-10-30 17:00 | NUR ---
terminal extubation completed per family request. spoke to dr alicea who is making rounds. pt tolerates fair. dc all sedation as ordered. @1730 medicated with ativan as ordered for increased respirations and agitation.
[2018-10-30] MEDS: LORAZEPAM INJ 2 MG/ML VIAL IV PRN ×3 (17:13→23:10)
[2018-10-30] MEDS ORDERED: MORPHINE SULFATE INJ 4 MG/ML INJ 1ML IV PRN (19:30)
[2018-10-30] MEDS ORDERED: MORPHINE SULFATE 2 MG/ML SYR 1ML IV PRN ×2 (19:30)
[2018-10-30] MEDS: MORPHINE SULFATE INJ 4 MG/ML INJ 1ML IV PRN ×3 (19:35→23:35)
[2018-10-30] MEDS: DEXMEDETOMIDINE HCL 200 MCG in SODIUM CHLORIDE 0.9% 50ML 48 ML IV PRN (19:58)
[2018-10-31] VITALS (15 sets, daily range): BP systolic 106–166; BP diastolic 75–121
[2018-10-31] MEDS: DEXMEDETOMIDINE HCL 200 MCG in SODIUM CHLORIDE 0.9% 50ML 48 ML IV PRN ×5 (00:29→20:06)
[2018-10-31] MEDS ORDERED: DEXMEDETOMIDINE 200MCG/NS 50ML 50 ML IV ONE ×5 (00:29→19:54)
[2018-10-31] MEDS: LORAZEPAM INJ 2 MG/ML VIAL IV PRN ×10 (01:14→23:04)
[2018-10-31] MEDS: IPRATROPIUM BROMIDE 0.02% 2.5 ML NEB NEB SCH ×6 (03:00→23:00)
[2018-10-31] MEDS: ALBUTEROL SULF 0.083% NEB SOLN 3 ML NEB NEB SCH ×6 (03:00→23:00)
[2018-10-31] MEDS: MORPHINE SULFATE INJ 4 MG/ML INJ 1ML IV PRN ×2 (03:15→05:31)
[2018-10-31] MEDS: METHYLPREDNISOLONE SOD SUCC 40 MG/ML VIAL 1ML IV SCH ×2 (05:58→16:06)
[2018-10-31] MEDS: LEVOTHYROXINE SODIUM 50 MCG TAB PO SCH (05:58)
[2018-10-31] MEDS: MEROPENEM 500MG/ NS 50ML 50 ML IV SCH ×4 (05:58→23:51)
[2018-10-31] MEDS: INSULIN LISPRO 100 UNIT/1 ML 3ML VIAL SQ SCH ×4 (07:30→20:55)
[2018-10-31] MEDS: DEXTROSE 5%/0.9% SOD CHL 1,000 ML IV SCH (08:13)
--- NOTE | 2018-10-31 08:33 | NUR ---
PT SIGNED CHOICE FOR [facility] FILED IN CHART AND CONTACTED REP, SHE WILL COME TODAY AT 10AM
[2018-10-31] MEDS: HEPARIN SOD (PORCINE) 5,000 UNIT/ML VIAL SC SCH ×2 (09:00→20:55)
[2018-10-31] MEDS: VANCOMYCIN 750MG/NS 150ML IVPB 150 ML IV SCH ×2 (09:35→20:55)
[2018-10-31] MEDS: BALSAM PERU/CASTOR OIL 60 GM OINT...G. TP SCH ×2 (09:35→16:06)
[2018-10-31] MEDS: AZITHROMYCIN 500MG/NS 250 ML 250 ML IV SCH (09:35)
[2018-10-31] MEDS: PANTOPRAZOLE 40 MG 10ML VIAL IV SCH (09:35)
--- NOTE | 2018-10-31 10:04 | NUR ---
SPOKE WITH [facility], THEY DO NOT ACCEPT [facility], SPOKE WITH SHE STATES [facility], CONTACTED [facility] AND FAXING CLINICALS TO [facility] [phone].
--- NOTE | 2018-10-31 13:30 | NUR ---
hospice meeting with family. comfort care only for pt, no further invasive care. pt intermittently agitated and medicated as per mar
--- NOTE | 2018-10-31 13:59 | Consultation ---
DATE OF CONSULTATION: 10/28/2018 HISTORY OF PRESENT ILLNESS: Mr. Recio is a 58-year-old white male, referred to me for evaluation of Jelly positive hemolysis after transfusion and the patient became very short of breath, had to be intubated. 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 SOCIAL HISTORY: History of excessive smoking. The information is obtained from my consultation with the patient's . FAMILY HISTORY: Noncontributory. ALLERGIES: REPORTED NONE. MEDICATIONS: At this time, 1. Albuterol. 2. Cefepime. 3. Zithromax. 4. Vancomycin. 5. Fentanyl. 6. Dextrose. 7. Heparin. 8. Protonix. REVIEW OF SYSTEMS: HEENT: History of cancer of the tongue, the patient has been treated as per the with systemic chemotherapy and external beam radiation therapy. She claims that it is metastatic at the present time with skin nodules and also involvement of the right shoulder. CARDIOVASCULAR: Essentially normal. RESPIRATORY: At the present time intubated with bronchopneumonia. GI: Normal. : Ryan catheter. 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 PHYSICAL EXAMINATION: GENERAL: A cachectic male, intubated. VITAL SIGNS: Pulse 110, blood pressure 140/60. HEART: Tachycardic. LUNGS: Coarse crepitations. ABDOMEN: Soft. RECTAL: Could not be done. CENTRAL NERVOUS SYSTEM: Could not be done. LABORATORY DATA: Lab shows a hemoglobin of 6.8, hematocrit 22.5, white count of 28,400, platelets of 322,000. BUN 10, creatinine 0.5, glucose 76, sodium 140, potassium 3.7, chloride is 108, CO2 of 28. Bilirubin 0.2, SGOT 29, SGPT 14, alkaline phosphatase 200. IMPRESSION: 1. Jelly positivity. 2. Hemolytic reaction. 3. Metastatic head and neck cancer. 4. Multicentric pneumonia by chest x-ray. 5. Pleural effusion by chest x-ray. 6. Possible sepsis. 7. Leukemoid reaction. 8. Hypoproteinemia. 9. Hypoalbuminemia. 10. Hyperglobulinemia. PLAN, COMMENTS, AND SUGGESTIONS: Suggest to hold blood transfusion. Suggest high-dose steroids. I have spoken to the patient's family for terminal care. On 10/31/2018, the patient's family had made him a no code. On 10/30/2018 in the evening, Dr. Walter Sumner had extubated the patient at the family's request. As soon as hospice care has been advocated, I will sign off. Roya Weinstein MD MAQ/MODL /[id number] cc: Walter Sumner MD
--- NOTE | 2018-10-31 19:00 | NUR ---
Report received from NIVIA Shelton. Patient received comfortably resting on bed. No agitation noted at this time. Respiration even and unlabored, continued 15 liters O2 via nasal canula. Family members at the bedside. Bed in lower position,locked. Call gandara within reach. Bed alarm on. Will continue to monitor.
[2018-10-31] MEDS: FENTANYL CITRATE INJ 2,000 MCG in SODIUM CHLORIDE 0.9% 250ML 210 ML IV PRN (20:02)
--- NOTE | 2018-10-31 22:13 | NUR ---
Patient assisted to put condom catheter at this time. Will continue to monitor.
[2018-11-01] VITALS (16 sets, daily range): BP systolic 91–154; BP diastolic 64–96
[2018-11-01] MEDS ORDERED: DEXMEDETOMIDINE 200MCG/NS 50ML 50 ML IV ONE ×2 (00:46→05:16)
[2018-11-01] MEDS: DEXMEDETOMIDINE HCL 200 MCG in SODIUM CHLORIDE 0.9% 50ML 48 ML IV PRN ×2 (00:51→05:20)
[2018-11-01] MEDS: LORAZEPAM INJ 2 MG/ML VIAL IV PRN ×7 (01:09→21:22)
[2018-11-01] MEDS: ALBUTEROL SULF 0.083% NEB SOLN 3 ML NEB NEB SCH (03:00)
[2018-11-01] MEDS: IPRATROPIUM BROMIDE 0.02% 2.5 ML NEB NEB SCH (03:00)
--- NOTE | 2018-11-01 04:40 | NUR ---
Patient assisted to changed dressing and applied Venelex cream on buttock area as order. Patient tolerated well at this time. Will continue to monitor.
[2018-11-01] MEDS: MEROPENEM 500MG/ NS 50ML 50 ML IV SCH ×4 (05:36→23:52)
[2018-11-01] MEDS: LEVOTHYROXINE SODIUM 50 MCG TAB PO SCH (05:36)
[2018-11-01] MEDS: DEXTROSE 5%/0.9% SOD CHL 1,000 ML IV SCH (05:37)
--- NOTE | 2018-11-01 07:01 | NUR ---
Report given to oncoming RN Patricia,walking round done. No issued noted.
[2018-11-01] MEDS: INSULIN LISPRO 100 UNIT/1 ML 3ML VIAL SQ SCH ×4 (07:30→20:29)
--- NOTE | 2018-11-01 07:44 | NUR ---
RECEIVED UPDATE FROM [facility], CONSENTS WERE SIGNED WITH FAMILY, PT TO BE MOVED TO HOME OR [facility] TODAY, HOSPICE WILL NOTIFY OF TRANSPORT TIME.
[2018-11-01] MEDS ORDERED: AZITHROMYCIN 500MG/NS 250 ML 250 ML IV PRN (08:00)
[2018-11-01] MEDS ORDERED: ALBUTEROL SULF 0.083% NEB SOLN 3 ML NEB NEB PRN (08:15)
[2018-11-01] MEDS ORDERED: IPRATROPIUM BROMIDE 0.02% 2.5 ML NEB NEB PRN (08:15)
[2018-11-01] MEDS: PANTOPRAZOLE 40 MG 10ML VIAL IV SCH (08:18)
[2018-11-01] MEDS: BALSAM PERU/CASTOR OIL 60 GM OINT...G. TP SCH ×2 (08:18→16:35)
[2018-11-01] MEDS: METHYLPREDNISOLONE SOD SUCC 40 MG/ML VIAL 1ML IV SCH ×2 (08:18→16:40)
[2018-11-01] MEDS: VANCOMYCIN 750MG/NS 150ML IVPB 150 ML IV SCH ×2 (08:32→21:01)
[2018-11-01] MEDS: HEPARIN SOD (PORCINE) 5,000 UNIT/ML VIAL SC SCH ×2 (08:33→20:54)
[2018-11-01] MEDS: METHADONE HCL 10 MG TAB PO SCH ×2 (12:03→17:02)
[2018-11-01] MEDS: MORPHINE SULFATE INJ 4 MG/ML INJ 1ML IV PRN ×2 (13:47→20:30)
--- NOTE | 2018-11-01 14:29 | NUR ---
HOSPICE NURSE IS HERE STATING SHE IS LETTING HER COORDINATOR [employer] KNOW THAT PT IS APPROPRIATE FOR GIP AT [facility], WITH A PLAN TO GO TO [facility] FOLLOWING IF ABLE
--- NOTE | 2018-11-01 15:43 | Discharge Summary ---
HOSPITAL COURSE: The patient was admitted through the emergency room, patient of Dr. Blum. An unfortunate 58-year-old gentleman, admitted through the emergency room, followed chronically at [facility], admitted with shortness of breath, altered mental status, and twitching according to the family, which began two days prior to admission. He had been quite confused. He has a history of carcinoma of the tongue and carcinoma of the lung with metastases. He was treated in the past with chemotherapy, radiation, and currently immunotherapy. Family, however, believes that the lung tumor is also metastatic. He has had postobstructive pneumonia. He had a syncope in the past, presumably caused by sick sinus syndrome and he has a pacemaker. During this hospital course, he became hypoxic and tachypneic during transfusion and he was found to have a Jelly positive blood transfusion reaction. He has a long history of smoking, continues to smoke. He has a history of working until two months ago. He was intubated during the episode of hypoxia, although the patient's family request was to have a DNR status. He was treated empirically with antibiotics, vancomycin, meropenem, and Zithromax. A left thoracentesis was performed for a pleural effusion. He was found to have a Jelly positive hemolytic transfusion reaction. On admission, he was quite anemic with a hemoglobin of 6.3, rising to 7.1 during his hospitalization. Transfusion reaction was treated with corticosteroids by Dr. Weinstein, senior risk analyst. Platelet count remained stable. Pleural fluid was an exudate by protein criteria. Protein 3.7. The transudate by LDH 134. Pleural fluid cytologies ordered, but not reported at the time of this dictation. The patient was successfully extubated. He was somewhat combative and he was kept on Precedex and fentanyl and p.r.n. Ativan. Morphine did not seem adequate to control his pain. Family requests comfort measures and he is to be transferred to hospice today. Precedex and fentanyl were discontinued. He was refusing nebulizer treatments. He is placed on p.r.n. status. His Wellbutrin 150 daily was resumed. His methadone 10 mg q.6 hours was resumed and his Zyprexa 5 mg at night resumed. He is also continued on Protonix, p.r.n. nebulizer, and supplemental oxygen by nasal cannula at high-flow. MD TALYA Victor/ELINA /[id number]
--- NOTE | 2018-11-01 18:15 | NUR ---
SPOKE TO [facility], STATES WE PT WOULD NOT BE ABLE TO BE TRANSFERRED TONIGHT BECAUSE MEDICATION WOULD NOT BE AVAILABLE TONIGHT. WILL TRANSFER IN AM
[2018-11-01] MEDS ORDERED: LACTULOSE SYRUP 20 GM/30 ML UDC PO PRN (20:15)
[2018-11-01] MEDS: BISACODYL 5 MG TAB EC PO PRN (20:55)
[2018-11-01] MEDS ORDERED: ZOLPIDEM TARTRATE 5 MG TAB PO PRN (21:00)
[2018-11-01] MEDS ORDERED: OLANZAPINE 5 MG TAB PO SCH (21:00)
[2018-11-02] VITALS: BP 132/83
[2018-11-02] MEDS: DEXTROSE 5%/0.9% SOD CHL 1,000 ML IV SCH (00:26)
[2018-11-02] MEDS: METHADONE HCL 10 MG TAB PO SCH ×4 (02:46→15:00)
[2018-11-02 03:00] VITALS: BP 134/78
[2018-11-02] MEDS ORDERED: METHADONE HCL 10 MG TAB PO SCH (03:00)
[2018-11-02] MEDS: MEROPENEM 500MG/ NS 50ML 50 ML IV SCH (05:44)
[2018-11-02] MEDS: LEVOTHYROXINE SODIUM 50 MCG TAB PO SCH (05:45)
[2018-11-02] MEDS ORDERED: BUPROPION HCL 150 MG TABCR PO SCH (06:00)
[2018-11-02] MEDS: MORPHINE SULFATE INJ 4 MG/ML INJ 1ML IV PRN (06:15)
[2018-11-02] MEDS: INSULIN LISPRO 100 UNIT/1 ML 3ML VIAL SQ SCH ×2 (07:30→11:30)
[2018-11-02] MEDS ORDERED: PANTOPRAZOLE SOD 40 MG TABEC PO SCH (07:30)
[2018-11-02] MEDS: HEPARIN SOD (PORCINE) 5,000 UNIT/ML VIAL SC SCH (09:00)
[2018-11-02] MEDS ORDERED: PREDNISONE 20 MG TAB PO SCH (09:00)
[2018-11-02] MEDS: BALSAM PERU/CASTOR OIL 60 GM OINT...G. TP SCH (09:26)
[2018-11-02] MEDS ORDERED: SOD PHOSPHATE/SOD BIPHOSPHATE ENEMA 132 ML BTL PR ONE (10:30)
--- NOTE | 2018-11-02 11:23 | NUR ---
CALL RECEIVED FROM [facility] @ [phone]. STATES THEY ARE WAITING ON A CALL BACK FROM [facility] TO ENSURE THEY HAVE ALL NEEDED EQUIPMENT IN PLACE. STATES SHE WILL INFORM CM WHEN PT OK TO TRANSFER. CM GAVE THE # TO THE ICU IF CM NOT AVAILABLE.
[2018-11-02] MEDS: BISACODYL 5 MG TAB EC PO PRN (13:10)
--- NOTE | 2018-11-02 13:15 | NUR ---
RECEIVED CALL FROM [facility]. STATES [facility] IS NOT ACCEPTING THE PT, BECAUSE THEY ARE NOT COMFORTABLE W THEIR NURSES GIVING IV MSO4. [facility] ASKED IF SHE COULD HAVE THEIR NURSE CALL CM TO DISCUSS. AGREED. CALL RECEIVED FROM [facility]. [facility] DENIED THE PT. CM REVIEWED FREQUENCY OF IV MSO4 W HOSPICE NURSE. INQUIRED IF THE MERREM WAS NEEDED. CM NOTED IT STOPPED TODAY. STATES SHE WOULD CALL [facility] BACK TO SEE IF THEY DO PO MSO4 IF IT WOULD BE OK. WILL F/U W ICU NURSECASEY.
== END 2018-11-02 15:53 | disposition hospice, inpatient (51) | DRG 871 ==
LOC: ER 14:38 → ERHOLD 17:27 → MED/SURG3 17:29 → ICU 10-28 01:13
PROVIDERS: ADMIT Internal Medicine; ATTEND Internal Medicine
PROC: 02HV33Z Insertion of Infusion Device into Superior Vena Cava, Percutaneous Approach (ICD-10-PCS; 2018-10-27)
PROC: 30243N1 Transfusion of Nonautologous Red Blood Cells into Central Vein, Percutaneous Approach (ICD-10-PCS; 2018-10-27)
PROC: 0BH17EZ Insertion of Endotracheal Airway into Trachea, Via Natural or Artificial Opening (ICD-10-PCS; principal; 2018-10-28)
PROC: 5A1945Z Respiratory Ventilation, 24-96 Consecutive Hours (ICD-10-PCS; 2018-10-28)
PROC: 0DH67UZ Insertion of Feeding Device into Stomach, Via Natural or Artificial Opening (ICD-10-PCS; 2018-10-28)
PROC: 3E0G76Z Introduction of Nutritional Substance into Upper GI, Via Natural or Artificial Opening (ICD-10-PCS; 2018-10-28)
PROC: 3E043XZ Introduction of Vasopressor into Central Vein, Percutaneous Approach (ICD-10-PCS; 2018-10-28)
DX: A41.9 Sepsis, unspecified organism (principal); J18.9 Pneumonia, unspecified organism; C79.51 Secondary malignant neoplasm of bone; C79.2 Secondary malignant neoplasm of skin; J90 Pleural effusion, not elsewhere classified; T80.919A Hemolytic transfusion reaction, unspecified incompatibility, unspecified as acute or delayed, initial encounter; C78.02 Secondary malignant neoplasm of left lung; R64 Cachexia; L89.151 Pressure ulcer of sacral region, stage 1; D63.8 Anemia in other chronic diseases classified elsewhere; D72.823 Leukemoid reaction; R09.02 Hypoxemia; Z66 Do not resuscitate; Z51.5 Encounter for palliative care; E88.09 Other disorders of plasma-protein metabolism, not elsewhere classified; R77.1 Abnormality of globulin; R53.81 Other malaise; J44.9 Chronic obstructive pulmonary disease, unspecified; R41.82 Altered mental status, unspecified; Z85.810 Personal history of malignant neoplasm of tongue; Z85.21 Personal history of malignant neoplasm of larynx; Z92.21 Personal history of antineoplastic chemotherapy; Z92.3 Personal history of irradiation; Z87.891 Personal history of nicotine dependence; Z95.0 Presence of cardiac pacemaker; Z78.1 Physical restraint status; Z28.21 Immunization not carried out because of patient refusal; Z99.81 Dependence on supplemental oxygen
CPT/HCPCS: 31500; 36415; 70450; 71045; 71260; 74018; 80048; 80053; 80307; 80320; 80329; 81001; 82140; 82550; 82553; 82805; 82945; 82948; 83540; 83605; 83615; 83735; 84157; 84466; 84484; 85025; 85045; 85610; 85730; 86078; 86850; 86880; 86900; 86920; 87040; 87070; 87086; 87205; 89051; 93005; 94002; 94003; 94640; 96372; 99284; J0330; J0456; J1644; J2060; J2250; J2270; J2920; J3010; J3370; J7030; J7042; J7050; P9016; Q9967